=== PATIENT | female | born 1975 | race Caucasian/White ===

== ENCOUNTER 2017-10-19 13:07 | Emergency (ER) | payer MEDICAID ==
[~2017-10-19 13:07] MED LIST: LAMO100 PO; MIRT15 PO; [UNRECOGNIZED DRUG - CODE] MC
== END 2017-10-19 14:48 | disposition left against medical advice (07) ==
LOC: EMS 13:09
DX: Z53.21 Procedure and treatment not carried out due to patient leaving prior to being seen by health care provider (principal)